=== PATIENT | male | born 1985 | race Hispanic/Latino ===

== ENCOUNTER → 2023-07-10 | Outpatient (CLI) | payer SELFPAY ==
[2023-07-10 12:37] LABS: ALT (SGPT) 31 U/L (8-55); AST (SGOT) 22 U/L (5-34); Albumin 4.1 g/dL (3.5-5.0); Alkaline Phosphatase 97 U/L (40-110); Anion Gap 15 mmol/L (10-20); BUN (Urea Nitrogen) 10 mg/dL (8.9-20.6); Bilirubin, Total 0.7 mg/dL (0.2-1.2); Calc. Creatinine Clearance 0 mL/min (70-130); Calcium 9.4 mg/dL (7.8-10.44); Carbon Dioxide 24 mmol/L (22-29); Cardiac Risk 6.9 (Less than 4.5); Chloride 101 mmol/L (98-107); Cholesterol 250 mg/dl (< 200 Desired); Estimated GFR 114; Globulin 3.6 g/dL (2.4-3.5); Glucose 244 mg/dL (70-105); HDL Cholesterol 36 mg/dL (>60 Neg Risk); Potassium 3.8 mmol/L (3.5-5.1); Protein, Total 7.7 g/dL (6.0-8.3); Sodium 136 mmol/L (136-145); Triglycerides 714 mg/dL (Less than 150)
[2023-07-10 16:26] LABS: Hemoglobin A1c 11.8 % (4.0-6.0)
[2023-07-10 17:45] LABS: Creatinine, Urine 207.46 mg/dL (63-166); Microalbumin Urine 26.6 mg/dL (0.5-50.0); Microalbumin/Creat Ratio 128.2 mg/g (Less than 30)
== END ==
LOC: EDSTATUS 10:15 → MADLABBHPM 11:55
PROVIDERS: ATTEND Family Medicine
DX: E11.9 Type 2 diabetes mellitus without complications (principal); E78.2 Mixed hyperlipidemia
CPT/HCPCS: 80053; 80061; 82043; 83036; 84443